=== PATIENT | male | born 1955 | race Caucasian/White ===

== ENCOUNTER 2018-04-27 11:53 | Emergency (ER) | payer OTHER ==
[~2018-04-27] VITALS: Ht 170.2 cm; Wt 96.3 kg
[~2018-04-27 11:53] MED LIST: NOCURR
[2018-04-27] MEDS ORDERED: METO-408 PO (12:02)
[2018-04-27] MEDS ORDERED: ROSU5TAB PO (12:02)
[2018-04-27] MEDS ORDERED: ALBU8.5H8 IH (12:02)
[2018-04-27] MEDS ORDERED: ASPI81TA39 PO (12:02)
[2018-04-27] MEDS ORDERED: AMLO2.5T29 PO (12:02)
[2018-04-27] MEDS ORDERED: KETOROLAC TROMETHAMINE 10 MG TABLET PO ONE (12:30)
[2018-04-27 13:42] VITALS: BP 143/88
== END 2018-04-27 14:14 | disposition home or self-care (01) ==
LOC: EMS 11:55
DX: S22.32XA Fracture of one rib, left side, initial encounter for closed fracture (principal); J98.11 Atelectasis; M31.1 Thrombotic microangiopathy; R10.9 Unspecified abdominal pain; I11.9 Hypertensive heart disease without heart failure; E78.00 Pure hypercholesterolemia, unspecified; Z79.82 Long term (current) use of aspirin; W10.9XXA Fall (on) (from) unspecified stairs and steps, initial encounter; Y93.89 Activity, other specified; Y92.89 Other specified places as the place of occurrence of the external cause; Y99.8 Other external cause status
CPT/HCPCS: 71101; 72070; 81002; 99284; G0238

== ENCOUNTER 2018-04-29 10:02 | Emergency (ER) | payer OTHER ==
[~2018-04-29] VITALS: Ht 172.7 cm; Wt 95.5 kg
[~2018-04-29 10:02] MED LIST changes: +ALBU8.5H8 IH; +AMLO2.5T29 PO; +ASPI81TA39 PO; +METO-408 PO; -NOCURR; +ROSU5TAB PO
[2018-04-29] MEDS ORDERED: HYDR-309 PO (10:10)
[2018-04-29] MEDS ORDERED: LIDOCAINE HCL 5% TRANSDERMAL PATCH TD ONE (10:45)
[2018-04-29] MEDS ORDERED: KETOROLAC TROMETHAMINE 60 MG/2 ML VIAL IM ONE (10:45)
[2018-04-29] MEDS ORDERED: METHOCARBAMOL 500 MG TABLET PO ONE (10:45)
[2018-04-29 11:17] VITALS: BP 142/90
== END 2018-04-29 12:02 | disposition home or self-care (01) ==
LOC: EMS 10:03
DX: S22.32XD Fracture of one rib, left side, subsequent encounter for fracture with routine healing (principal); I10 Essential (primary) hypertension; E78.00 Pure hypercholesterolemia, unspecified; E11.9 Type 2 diabetes mellitus without complications; Z79.82 Long term (current) use of aspirin; Z79.899 Other long term (current) drug therapy; W18.39XD Other fall on same level, subsequent encounter
CPT/HCPCS: 96372; 99283; J1885

== ENCOUNTER 2019-09-01 06:30 | Day surgery (SDC) | payer OTHER ==
[~2019-09-01] VITALS: Ht 172.7 cm; Wt 83.2 kg
[~2019-09-01 06:30] MED LIST changes: +HYDR-309 PO; +SODIUM CHLORIDE 0.9% 1,000 ML ONE
[2019-09-01] MEDS ORDERED: LIDOCAINE 2% 5 ML JELLY TP ONE (06:31)
[2019-09-01] MEDS ORDERED: BENZOCAINE 20% 50 MCG/SPRAY 57 GM TP ONE (06:31)
[2019-09-01] MEDS ORDERED: LIDOCAINE 2% 30 ML JELLY TP ONE (06:31)
[2019-09-01] MEDS ORDERED: ALBUTEROL SULFATE 2.5 MG/0.5 ML NEB SOLUTION NEB ONE (06:31)
[2019-09-01] MEDS ORDERED: SODIUM CHLORIDE 0.9% 1,000 ML IV ONE (07:00)
[2019-09-01] MEDS ORDERED: TRAZ150 PO (07:24)
[2019-09-01] MEDS ORDERED: BACL10TA PO (07:24)
[2019-09-01] MEDS ORDERED: MIDAZOLAM HCL 2 MG/2 ML VIAL ONE (08:03)
[2019-09-01] MEDS ORDERED: FentaNYL CITRATE-PF 100 MCG/2 ML VIAL ONE (08:04)
[2019-09-01] MEDS ORDERED: MethylPREDNISolone SOD SUCC 125 MG/2 ML VIAL IVP ONE (09:15)
[2019-09-01] MEDS ORDERED: OXYGEN THERAPY IH SCH (20:00)
== END 2019-09-01 11:20 | disposition home or self-care (01) ==
LOC: SURGERY 06:30
PROVIDERS: ATTEND Internal Medicine Critical Care Medicine
DX: R05 Cough (principal); R91.1 Solitary pulmonary nodule; J34.89 Other specified disorders of nose and nasal sinuses; J98.8 Other specified respiratory disorders; J38.4 Edema of larynx; B37.0 Candidal stomatitis; R19.09 Other intra-abdominal and pelvic swelling, mass and lump; Z79.899 Other long term (current) drug therapy
CPT/HCPCS: 31623; 31624; 71045; 87015; 87070; 87101; 87205; 87206; 87220; 88184; 88185; 93005; J2250; J2930; J3010; J7030; 88108; 88312